=== PATIENT | female | born 1990 | race Asian ===

== ENCOUNTER 2020-09-24 14:00 | Emergency (ER) | payer OTHER ==
[~2020-09-24] VITALS: Ht 157.5 cm; Wt 68.0 kg
[2020-09-24 14:57] VITALS: Ht 157.5 cm; Wt 68.0 kg
[2020-09-24 17:24] LABS: BASOPHIL % 0.2 % (0.2-1.3); PLATELET COUNT 340 x10^3mcL (179-408); RED CELL DISTRIBUTION WIDTH 14.5 % (12.3-17.7)
[2020-09-24 17:35] LABS: CALCIUM 9.4 mg/dL (8.5-10.1); CHLORIDE SERUM 107 mmol/L (98-107); CREATININE SERUM 0.6 mg/dL (0.6-1.0); GFR1 > 60 mL/min; GLUCOSE SERUM 109 mg/dL (74-106); POTASSIUM SERUM 4.9 mmol/L (3.5-5.1); SODIUM SERUM 135 mmol/L (136-145)
[2020-09-24 17:40] LABS: ALBUMIN 4.3 g/dL (3.4-5.0); ALKALINE PHOSPHATASE 100 U/L (46-116); ALT/SGPT 62 U/L (14-59); AST/SGOT 43 U/L (15-37); BILIRUBIN TOTAL 0.57 mg/dL (0.20-1.00)
[2020-09-24 17:41] LABS: TOTAL PROTEIN, SERUM 9.2 g/dL (6.4-8.2)
[2020-09-24 19:23] VITALS: BP 131/91
== END 2020-09-24 19:23 | disposition home or self-care (01) ==
LOC: ED 14:00
PROVIDERS: Emergency Medicine
DX: R10.30 Lower abdominal pain, unspecified (principal); R11.2 Nausea with vomiting, unspecified; R63.0 Anorexia; R10.814 Left lower quadrant abdominal tenderness